=== PATIENT | male | born 2000 | race Caucasian/White ===

== ENCOUNTER 2025-05-08 21:15 | Emergency (ER) | payer OTHER, SELFPAY ==
--- NOTE | 2025-05-08 | XR_ITS ---
WS: [id number] views of the right first finger, 05/08/2025, 2247 hours Clinical Data: POST REDUCTION Comparison: Right thumb, 05/08/2025, 2144 hours Findings: There is reduction of the dorsal angulation of the distal fracture fragment of the proximal phalanx of the right thumb. XR/XR finger RT min 2V [id number] Impression: Reduction of angulation of distal fracture fragment of the proximal phalanx of the right thumb.
[2025-05-08 21:26] VITALS: BP 119/74; PULSE 56; RESP 18; TEMP 36.8; O2SAT 98; BMI 23.6
--- NOTE | 2025-05-08 21:33 | XRR_ITS ---
PROCEDURE INFORMATION: Exam: XR Right Finger(s) Exam date and time: 05/08/2025 9:41 PM Age: 25 years old Clinical indication: Injury or trauma; Other: Crushing; Finger; Right; Thumb; Additional info: Thumb; Smash injury between board and pipe TECHNIQUE: Imaging protocol: Radiologic exam of the right fingers. Views: Minimum 2 views. COMPARISON: No relevant prior studies available. FINDINGS: Bones/joints: Comminuted displaced and angulated fracture of the midshaft right proximal 1st phalanx. Soft tissues: Normal. XR/XR finger RT min 2V [id number] IMPRESSION: Comminuted displaced and angulated fracture of the midshaft right proximal 1st phalanx.
--- NOTE | 2025-05-08 21:49 | W.ED.UPPEXIN ---
HPI - Extremity Injury (Upper) General: Chief Complaint: Extremity Injury, Upper Stated Complaint: right thumb pain Time Seen by Provider: 05/08/25 21:44 Source: patient Mode of arrival: ambulatory Limitations: no limitations History of Present Illness: Patient is a nice 25-year-old male presents to ED today for evaluation of right thumb injury that he sustained just prior to arrival while at work. Patient states he got the right finger smashed between a piece of wood and a steel board. States this is a Worker's Comp injury. complaint: injury to: right and finger Onset (ago): hour(s) Other Extremity Injury: Right: fingers Handedness: right Place: work Severity: moderate Relieving factors: immobilization Exacerbating factors: movement of extremity Context: direct blow Associated symptoms: Reports no associated symptoms Related Data Allergies Allergy/AdvReac Type Severity Reaction Status Date / Time No Known Allergies Allergy Verified 05/08/25 21:33 Review of Systems Musc: Reports: extremity pain (R thumb) Neuro: Denies: numbness in extremities or sensory changes Physical Exam Const: COMMON NORMALS: no acute distress, average body habitus, no limitations, healthy appearing, alert and well nourished Extremity: COMMON NORMALS: capillary refill normal GENERAL: Yes normal exam except as noted RIGHT UPPER EXTREMITY: Yes hand & digits (deformity to R thumb consistent with fracture/dislocation) Right hand and digits: Yes neurovascular exam (normal) OTHER: no breaks in skin Neuro: COMMON NORMALS: moves all extremities, no focal motor deficits and no sensory deficits noted SENSORIUM/ORIENTATION: Yes alert Procedures Orthopedic Fracture Reduction Fracture #1: Side: right Fracture Reduction Location: finger Analgesia: nerve block Technique: direct manipulation and traction/counter-traction Post Reduction X-rays Demonstrate: other (initial post reduction film showed no change-this was later re-shot with me at patient bedside and showed improved alignment however order was never placed and I cannot find these images now in patient chart) Post-reduction neuro exam: intact Post-reduction vascular exam: intact Splint Applied: Yes Patient Tolerated Procedure: well Additional Comments: Attempted reduction after nerve block and could palpate reduction but as soon as I would let go of his finger, his fracture to proximal phalanx would immediately displace again. His initial post-reduction films did not show any improvement in alignment. Attempted repeat reduction and anatomical positioning was manually held for repeat imaging. We did have XR tech come shoot repeat films and alignment was much improved thus we held digit in alignment and placed thumb spica. XR tech had expressed that he would put an order in for these repeat films but I do not see that it was completed thus I cannot see improved films in his chart but these were visualized on portable XR prior to splinting. Course Consultations: Consultation #1: Dr. Brennan-recommend reduction, thumb spica, follow up in office Vital Signs: Vital signs: Vital Signs Temperature 98.3 F 05/08/25 21:26 Pulse Rate 56 L 05/08/25 21:26 Respiratory Rate 18 05/08/25 21:26 Blood Pressure 119/74 05/08/25 21:26 Pulse Oximetry 98 05/08/25 21:26 Oxygen Delivery Me thod Room Air 05/08/25 21:26 MDM - Extremity Injury (Upper) Medical Decision Making Patient here with a comminuted, displaced, angulated proximal phalanx fracture involving his right thumb. Unsuccessful first attempt at reduction as fracture would immediately displace again as soon as I removed traction. Second attempt at reduction successful per portable XR films and finger was held in traction until I could get a thumb spica placed on it to hold alignment. Digit NV intact. He will follow up with orthopedics. Medical Records I reviewed the patient's medical records. Lab Data Radiology Impressions Finger X-Ray 05/08/25 22:15 IMPRESSION: No significant interval change in the appearance or alignment of the comminuted displaced and angulated fracture of the proximal 1st phalanx. All radiology interpretation(s) finalized by discharge Discharge Plan Discharge Patient Disposition: Home Clinical Impression: Closed fracture of proximal phalanx of thumb Qualifiers: Encounter type: initial encounter Fracture alignment: displaced Laterality: right Qualified Code(s): S62.511A - Displaced fracture of proximal phalanx of right thumb, initial encounter for closed fracture Condition: Stable Discharge Orders: Discharge ED (Routine); Ordered 05/08/25 Ordered By: Brook Appiah Referrals: Ranjit Mcbride [Primary Care Provider, [facility]] Rosy Boyd FNP [Family Provider, Nurse Practitioner] Patient Instructions: Thumb Fracture (ED), Patient Portal & Dee Instructions Activity Restrictions/Additional Instructions: As we discussed, case management should contact you shortly regarding your follow-up orthopedic appointment. You need to stay in your splint at all times until this appointment. You have indicated that you did not want a prescription for pain medications. You need to take Tylenol and Ibuprofen [id number] to help with swelling and discomfort. Print Language: Persian Coding Level of Care Code ED Brokerage Coordinator for Erwin Sutton
--- NOTE | 2025-05-08 22:15 | XRR_ITS ---
PROCEDURE INFORMATION: Exam: XR Right Finger(s) Exam date and time: 05/08/2025 10:18 PM Age: 25 years old Clinical indication: Pain; Finger(s); Right; Additional info: Thumb; Attempted reduction/better alignment TECHNIQUE: Imaging protocol: Radiologic exam of the right fingers. Views: Minimum 2 views. COMPARISON: CR (UP EXM, ) 05/08/2025 9:41 PM FINDINGS: Bones/joints: No significant interval change in the appearance or alignment of the comminuted displaced and angulated fracture of the proximal 1st phalanx. Soft tissues: Normal. XR/XR finger RT min 2V [id number] IMPRESSION: No significant interval change in the appearance or alignment of the comminuted displaced and angulated fracture of the proximal 1st phalanx.
--- OUTSIDE RECORDS SUMMARY | 2025-05-08 23:08 | XMS_ITS | Encounter Summary ---
Author Organization [facility] Address [address] [place] [address] Care Team Providers Care Machine Gunner Name Role Phone Eros Verdin MD Primary Care Provider +1 [phone] Encounter Details Date Type Department Care Team (Latest Contact Info) Description 09/17/2003 Outpatient [facility] Family Medicine- [address] [address] [place] [address] Chris Gutierrez, NO ADDRESS ON FILE ACUTE URI NOS (Primary Dx) Social History Tobacco Use Types Packs/Day Years Used Date Smoking Tobacco: Never Assessed Sex and Gender Information Value Date Recorded Sex Assigned at Not on file 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
--- OUTSIDE RECORDS SUMMARY | 2025-05-08 23:08 | XMS_ITS | Encounter Summary ---
Author Organization [facility] Address [address] [place] [address] Care Team Providers Care Senior Research Consultant Name Role Phone Eros Verdin MD Primary Care Provider +1 [phone] Encounter Details Date Type Department Care Team (Latest Contact Info) Description 05/29/2003 Outpatient Historical [facility] Medicine [address] [phone] Herminia France MD NO ADDRESS ON FILE ACUTE URI NOS (Primary Dx) Social History Tobacco Use Types Packs/Day Years Used Date Smoking Tobacco: Never Assessed Sex and Gender Information Value Date Recorded Sex Assigned at Not on file 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
--- OUTSIDE RECORDS SUMMARY | 2025-05-08 23:08 | XMS_ITS | Encounter Summary ---
Author Organization [facility] Address [address] [place] [address] Care Team Providers Care Packing House Supervisor Name Role Phone Eros Verdin MD Primary Care Provider +1 [phone] Encounter Details Date Type Department Care Team (Latest Contact Info) Description 09/15/2005 Outpatient [facility]- [address] [phone] Param Baldwin MD [address] [phone] ACUTE URI NOS (Primary Dx) Social History Tobacco Use Types Packs/Day Years Used Date Smoking Tobacco: Never Assessed Sex and Gender Information Value Date Recorded Sex Assigned at Not on file 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
--- OUTSIDE RECORDS SUMMARY | 2025-05-08 23:08 | XMS_ITS | Encounter Summary ---
Author Organization [facility] Address [address] [place] [address] Care Team Providers Care Activities Officer Name Role Phone Eros Verdin MD Primary Care Provider +1 [phone] Encounter Details Date Type Department Care Team (Latest Contact Info) Description 11/22/2003 Outpatient [facility]- [address] [phone] Chris Gutierrez DO NO ADDRESS ON FILE STREP SORE THROAT (Primary Dx) Social History Tobacco Use Types Packs/Day Years Used Date Smoking Tobacco: Never Assessed Sex and Gender Information Value Date Recorded Sex Assigned at Not on file 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
--- OUTSIDE RECORDS SUMMARY | 2025-05-08 23:08 | XMS_ITS | Encounter Summary ---
Author Organization [facility] Address [address] [place] [address] Care Team Providers Care Internist Name Role Phone Eros Verdin MD Primary Care Provider [phone] [phone] Encounter Details Date Type Department Care Team (Latest Contact Info) Description 01/07/2003 Outpatient Historical [facility] Family Medicine- [place] [address] [place] [address] Herminia France MD NO ADDRESS ON FILE ACUTE PHARYNGITIS (Primary Dx) Social History Tobacco Use Types Packs/Day Years Used Date Smoking Tobacco: Never Assessed Sex and Gender Information Value Date Recorded Sex Assigned at Not on file Legal Sex Male 4:52 AM CURATOR Gender Identity Not on file Sexual Orientation Not on file documented as of this encounter Plan of Treatment Not on file documented as of this encounter Visit Diagnoses Diagnosis Acute pharyngitis- Primary documented in this encounter Care Teams Internist Relationship Specialty Start Date End Date Eros Verdin MD [address] [facility] [address] [place] [address] PCP - General Family Practice 04/12/18 documented as of this encounter
--- OUTSIDE RECORDS SUMMARY | 2025-05-08 23:08 | XMS_ITS | Encounter Summary ---
Author Organization [facility] Address [address] [place] [address] Care Team Providers Care Modeling Analyst Name Role Phone Eros Verdin MD Primary Care Provider +1 [phone] Encounter Details Date Type Department Care Team (Latest Contact Info) Description 01/22/2004 Outpatient Historical [facility] Family Medicine- [place] [address] [facility] [place] [address] Vladimir Gonzalez NP NO ADDRESS ON FILE ACUTE TONSILLITIS (Primary Dx) Social History Tobacco Use Types Packs/Day Years Used Date Smoking Tobacco: Never Assessed Sex and Gender Information Value Date Recorded Sex Assigned at Not on file Legal Sex Male 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
--- OUTSIDE RECORDS SUMMARY | 2025-05-08 23:08 | XMS_ITS | Encounter Summary ---
Author Organization [facility] Address [address] [place] [address] Care Team Providers Care Generator Operator Name Role Phone Eros Verdin MD Primary Care Provider +1 [phone] Encounter Details Date Type Department Care Team (Latest Contact Info) Description 12/28/2004 Outpatient [facility] Family Medicine- [address] [place] [address] Herminia France MD NO ADDRESS ON FILE ACUTE BRONCHITIS (Primary Dx); ACUTE PHARYNGITIS Social History Tobacco Use Types Packs/Day Years Used Date Smoking Tobacco: Never Assessed Sex and Gender Information Value Date Recorded Sex Assigned at Not on file Legal Sex Male 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
--- OUTSIDE RECORDS SUMMARY | 2025-05-08 23:08 | XMS_ITS | Encounter Summary ---
Author Organization [facility] Address [address] [place] [address] Care Team Providers Care Lumber Material Handler Name Role Phone Eros Verdin MD Primary Care Provider [phone] [phone] Encounter Details Date Type Department Care Team (Latest Contact Info) Description 04/13/2004 Outpatient [facility]- [address] [phone] Ranjit Mcbride, PA NO ADDRESS ON FILE ACUTE PHARYNGITIS (Primary Dx) Social History Tobacco Use Types Packs/Day Years Used Date Smoking Tobacco: Never Assessed Sex and Gender Information Value Date Recorded Sex Assigned at Not on file Legal Sex Male 4:52 AM ENGLISH TUTOR Gender Identity Not on file Sexual Orientation Not on file documented as of this encounter Plan of Treatment Not on file documented as of this encounter Visit Diagnoses Diagnosis Acute pharyngitis- Primary documented in this encounter Care Teams Lumber Material Handler Relationship Specialty Start Date End Date Eros Verdin MD [address] [phone] PCP - General Family Practice 04/12/18 documented as of this encounter
--- OUTSIDE RECORDS SUMMARY | 2025-05-08 23:09 | XMS_ITS | Encounter Summary ---
Author Organization [facility] Address [address] [place] [address] Care Team Providers Care Funeral Home Makeup Artist Name Role Phone Eors Verdin MD Primary Care Provider +1 -[phone] Encounter Details Date Type Department Care Team (Latest Contact Info) Description 01/26/2002 Outpatient [facility]- [address] [phone] Chris Gutierrez, NO ADDRESS ON FILE OTITIS MEDIA NOS (Primary Dx) Social History Tobacco Use Types Packs/Day Years Used Date Smoking Tobacco: Never Assessed Sex and Gender Information Value Date Recorded Sex Assigned at Not on file 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
--- OUTSIDE RECORDS SUMMARY | 2025-05-08 23:09 | XMS_ITS | Encounter Summary ---
Author Organization [facility] Address [address] [place] [address] Care Team Providers Care Data Collection Interviewer Name Role Phone Eros Verdin MD Primary Care Provider +1 [phone] Encounter Details Date Type Department Care Team (Latest Contact Info) Description 12/18/2002 Outpatient [facility] Family Medicine- [place] [address] [place] [address] Chris Gutierrez, NO ADDRESS ON FILE NAUSEA WITH VOMITING (Primary Dx); DIARRHEA NOS Social History Tobacco Use Types Packs/Day Years Used Date Smoking Tobacco: Never Assessed Sex and Gender Information Value Date Recorded Sex Assigned at Not on file 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
--- OUTSIDE RECORDS SUMMARY | 2025-05-08 23:09 | XMS_ITS | Encounter Summary ---
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
--- OUTSIDE RECORDS SUMMARY | 2025-05-08 23:09 | XMS_ITS | Encounter Summary ---
Author Organization [facility] Address [address] [place] [address] Care Team Providers Care Fly Setter Name Role Phone Eros Verdin MD Primary Care Provider +1 -[phone] Encounter Details Date Type Department Care Team (Latest Contact Info) Description 02/09/2002 Outpatient Historical [facility] Medicine- [address] [phone] Param Baldwin MD [address] [phone] OTITIS MEDIA NOS (Primary Dx) Social History Tobacco Use Types Packs/Day Years Used Date Smoking Tobacco: Never Assessed Sex and Gender Information Value Date Recorded Sex Assigned at Not on file Legal Sex Male 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
--- OUTSIDE RECORDS SUMMARY | 2025-05-08 23:09 | XMS_ITS | Encounter Summary ---
Author Organization [facility] Address [address] [place] [address] Care Team Providers Care Muck Miner Name Role Phone Eros Verdin MD Primary Care Provider +1 -[phone] Encounter Details Date Type Department Care Team (Latest Contact Info) Description 06/29/2002 Outpatient [facility]- [address] [phone] Herminia France MD NO ADDRESS ON FILE STREP SORE THROAT (Primary Dx) Social History Tobacco Use Types Packs/Day Years Used Date Smoking Tobacco: Never Assessed Sex and Gender Information Value Date Recorded Sex Assigned at Not on file Legal Sex Male 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
--- OUTSIDE RECORDS SUMMARY | 2025-05-08 23:09 | XMS_ITS | Encounter Summary ---
Author Organization [facility] Address [address] [place] [address] Care Team Providers Care Epic Cupid Specialists Name Role Phone Eros Verdin MD Primary Care Provider +1 [phone] Encounter Details Date Type Department Care Team (Latest Contact Info) Description 10/26/2002 Outpatient Historical [facility] Medicine- [address] [phone] Param Baldwin MD [address] [phone] OTITIS MEDIA NOS (Primary Dx) Social History Tobacco Use Types Packs/Day Years Used Date Smoking Tobacco: Never Assessed Sex and Gender Information Value Date Recorded Sex Assigned at Not on file Legal Sex Male 4: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
--- OUTSIDE RECORDS SUMMARY | 2025-05-08 23:09 | XMS_ITS | Clinical Summary ---
Author Organization [facility] Address [address] [facility] Attn: Epic Prelude ADT AUDELIA DICKSON [address] Care Team Providers Care Spectrographer Name Role Phone Eros Verdin MD Primary Care Provider +1 [phone] Allergies No known active allergies Medications predniSONE (DELTASONE) 20 mg tablet Take 1 Tablet (20 mg) by mouth daily. 7 Tablet 0 07/23/2019 Active Active Problems Problem Noted Date Diagnosed Date Allergic rhinitis 02/06/2010 Asthma 12/10/2009 Immunizations Immunization Administration Dates Next Due (ADACEL/BOOSTRIX)(10 YR UP) TDAP VACCINE, 0.5ML, IM 04/29/2014 (M-M-R II/PRIORIX)(12 MO UP) MEASLES, MUMPS AND RUBELLA VIRUS VACCINE, 0.5 ML IM/SUBCUT 05/06/2006,05/10/2003 Dt Dtp Dtap Vaccine 05/06/2006, 4,05/10/2003,2000 HIB, Unspecified Formulation 05/12/2004,05/10/20 03,2001 Hepatitis B Vaccine 05/12/2004,05/10/2003,2000 IPV/OPV 05/06/2006, 4,05/10/2003,2000 Pneumococcal 7-valent conjug ate vaccine IM 05/12/2004 Family History Medical History Relation Name Comments Asthma Father Other Father accidental deat h Cancer Maternal Grandfather throat, leukemia Depression Maternal Grandmother Respiratory Disease Maternal Grandmother Thyroid Disease Maternal Grandmother Depression Mother Other Mother anxiety,headach es Healthy Paternal Grandfather Healthy Paternal Grandmother Breast Cancer Neg Hx Colon Cancer Neg Hx Relation Name Status Comments Father Maternal Grandfather Maternal Grandmother Alive Mother Alive Paternal Grandfather Alive Paternal Grandmother Alive Social History Tobacco Use Types Packs/Day Years Used Date Smoking Tobacco: Never Smokeless Tobacco: Former Alcohol Use Standard Drinks/Week Comments No 0 (1 standard drink = 0.6 oz pur e alcohol) Sex and Gender Information Value Date Recorded Sex Assigned at Not on file 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 Gender Identity Not on file Sexual Orientation Not on file Last Filed Vital Signs Vital Sign Reading Time Taken Comments Blood Pressure 118/68 07/23/2019 10:11 AM CDT Pulse 88 07/23/2019 10:11 AM CDT Temperature 37.6 C (99.7 F) 07/23/2019 10:11 AM CDT Respiratory Rate 18 07/22/2019 1:53 AM CDT Oxygen Saturation - - Inhaled Oxygen Concentration - - Weight 62.2 kg (137 lb 3.2 oz) 07/23/2019 10:11 AM CDT Height 175.9 cm (5' 9.25 ) 07/23/2019 10:11 AM C DT Body Mass Index 20.12 07/23/2019 10:11 AM CDT Plan of Treatment Health Maintenance Due Date Last Done Comments HPV VACCINES (1 - Male 3-dos e series) 02/12/2016 DTAP/TDAP/TD VACCINES (6 - T d or Tdap) 04/29/2024 04/29/2014, 05/06/2006, 05/12/2004, Additional history exists INFLUENZA VACCINE (#1) 2025 HEPATITIS B VACCINES Completed 05/12/2004, 05/10/2003, 2001 Care Teams Spectrographer Relationship Specialty Start Date End Date Eros Verdin MD [address] [phone] PCP - General Family Practice 04/12/18
--- OUTSIDE RECORDS SUMMARY | 2025-05-08 23:09 | XMS_ITS | Clinical Summary ---
Author Organization [facility] Address [address] [place] [address] Care Team Providers Care Montessori Teacher Name Role Phone Eros Verdin MD Primary Care Provider +1 [phone] Allergies No known active allergies Medications predniSONE (DELTASONE) 20 mg tablet Take 1 Tablet (20 mg) by mouth daily. 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 Gender Identity Not on file Sexual Orientation Not on file Occupation Industry Job Start Date Job End Date Not on file Not on file Not on file Not on file Last Filed Vital Signs Vital Sign Reading Time Taken Comments Blood Pressure 118/68 07/23/2019 10:11 AM CDT Pulse 88 07/23/2019 10:11 AM CDT Temperature 37.6 C (99.7 F) 07/23/2019 10:11 AM CDT Respiratory Rate 18 07/22/2019 1:53 AM CDT Oxygen Saturation 99% 07/23/2019 10:11 AM CDT Inhaled Oxygen Concentration - - Weight 62.2 kg (137 lb 3.2 oz) 07/23/2019 10:11 AM CDT Height 175.9 cm (5' 9.25 ) 07/23/2019 10:11 AM C DT Body Mass Index 20.11 07/23/2019 10:11 AM CDT Plan of Treatment Health Maintenance Due Date Last Done Comments HPV VACCINES (1 - Male 3-dos e series) 02/12/2016 DTAP/TDAP/TD VACCINES (6 - T d or Tdap) 04/29/2024 04/29/2014, 05/06/2006, 05/12/2004, Additional history exists INFLUENZA VACCINE (#1) 2025 HEPATITIS B VACCINES Completed 05/12/2004, 05/10/2003, 2001 Insurance [facility] [place] [place] [address] Care Teams Montessori Teacher Relationship Specialty Start Date End Date Eros Verdin MD [address] [phone] PCP - General Family Practice 04/12/18
--- OUTSIDE RECORDS SUMMARY | 2025-05-08 23:09 | XMS_ITS | Encounter Summary ---
Author Organization [facility] Address [address] [place] [address] Care Team Providers Care Retail Sales Lead Name Role Phone Eros Verdin MD Primary Care Provider [phone] [phone] Encounter Details Date Type Department Care Team (Latest Contact Info) Description 2001 [facility] Family Medicine- [place] [address] [place] [address] Chris Gutierrez, NO ADDRESS ON FILE OTITIS MEDIA NOS (Primary Dx) Social History Tobacco Use Types Packs/Day Years Used Date Smoking Tobacco: Never Assessed Sex and Gender Information Value Date Recorded Sex Assigned at Not on file 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
--- OUTSIDE RECORDS SUMMARY | 2025-05-08 23:09 | XMS_ITS | Encounter Summary ---
Author Organization [facility] Address [address] [place] [address] Care Team Providers Care Radiological Defense Officer Name Role Phone Eros Verdin MD Primary Care Provider +1 [phone] Encounter Details Date Type Department Care Team (Latest Contact Info) Description 05/06/2006 Outpatient [facility]- [address] [phone] Ranjit Mcbride, [place] NO ADDRESS ON FILE Routine Child Health Exam (Primary Dx) Social History Tobacco Use Types Packs/Day Years Used Date Smoking Tobacco: Never Assessed Sex and Gender Information Value Date Recorded Sex Assigned at Not on file 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
--- OUTSIDE RECORDS SUMMARY | 2025-05-08 23:09 | XMS_ITS | Encounter Summary ---
Author Organization [facility] Address [address] [place] [address] Care Team Providers Care Line Department Supervisor Name Role Phone Eros Verdin MD Primary Care Provider +1 [phone] Encounter Details Date Type Department Care Team (Latest Contact Info) Description 06/12/2002 Outpatient [facility] Family Medicine- [place] [address] [place] [address] Chris Gutierrez, NO ADDRESS ON FILE OTITIS MEDIA NOS (Primary Dx); INSECT BITE NEC Social History Tobacco Use Types Packs/Day Years Used Date Smoking Tobacco: Never Assessed Sex and Gender Information Value Date Recorded Sex Assigned at Not on file 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 Gender Identity Not on file Sexual Orientation Not on file documented as of this encounter Plan of Treatment Not on file documented as of this encounter Visit Diagnoses Diagnosis Unspecified otitis media- Primary Other, multiple, and unspecified sites, insect bite, nonvenomous, without mention of infection(919.4) Other, multiple, and unspecified sites, insect bite, nonvenomous, without mention of infection documented in this encounter Care Teams Line Department Supervisor Relationship Specialty Start Date End Date Eros Verdin MD [address] [place] [phone] PCP - General Family Practice 04/12/18 documented as of this encounter
--- OUTSIDE RECORDS SUMMARY | 2025-05-08 23:09 | XMS_ITS | Encounter Summary ---
Author Organization [facility] Address [address] [place] [address] Care Team Providers Care Film Processor Name Role Phone Eros Verdin MD Primary Care Provider +1 [phone] Encounter Details Date Type Department Care Team (Latest Contact Info) Description 10/23/2002 Outpatient [facility] Family Medicine- [address] [place] [address] Chris Gutierrez, DO NO ADDRESS ON FILE ACUTE PHARYNGITIS (Primary Dx); OTITIS MEDIA NOS Social History Tobacco Use Types Packs/Day Years Used Date Smoking Tobacco: Never Assessed Sex and Gender Information Value Date Recorded Sex Assigned at Not on file 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
--- OUTSIDE RECORDS SUMMARY | 2025-05-08 23:09 | XMS_ITS | Encounter Summary ---
Author Organization [facility] Address [address] [place] [address] Care Team Providers Care Rag Room Supervisor Name Role Phone Eros Verdin MD Primary Care Provider +1 [phone] Encounter Details Date Type Department Care Team (Latest Contact Info) Description 09/11/2002 Outpatient [facility] Family Medicine- [place] [address] [place] [address] Chris Gutierrez, NO ADDRESS ON FILE OTITIS MEDIA NOS (Primary Dx) Social History Tobacco Use Types Packs/Day Years Used Date Smoking Tobacco: Never Assessed Sex and Gender Information Value Date Recorded Sex Assigned at Not on file 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
--- OUTSIDE RECORDS SUMMARY | 2025-05-08 23:09 | XMS_ITS | Encounter Summary ---
Author Organization [facility] Address [address] [place] [address] Care Team Providers Care Concrete Block Mason Name Role Phone Eros Verdin MD Primary Care Provider +1 [phone] Encounter Details Date Type Department Care Team (Latest Contact Info) Description 12/17/2002 Outpatient Historical [facility] Medicine- [address] [phone] Param Baldwin MD [address] [phone] NAUSEA WITH VOMITING (Primary Dx); DIARRHEA NOS Social History Tobacco Use Types Packs/Day Years Used Date Smoking Tobacco: Never Assessed Sex and Gender Information Value Date Recorded Sex Assigned at Not on file 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
--- OUTSIDE RECORDS SUMMARY | 2025-05-08 23:09 | XMS_ITS | Encounter Summary ---
Author Organization [facility] Address [address] [place] [address] Care Team Providers Care Asset Protection Officer Name Role Phone Eros Verdin MD Primary Care Provider +1 [phone] Encounter Details Date Type Department Care Team (Latest Contact Info) Description [address] 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
--- NOTE | 2025-05-09 09:49 | DCPLANNER ---
messaged ortho for er f/u
== END 2025-05-08 23:12 | disposition home or self-care (01) ==
PROVIDERS: Emergency Provider Physician Assistant; Family Provider Nurse Practitioner; PCP Physician Assistant Medical
DX: S62.511A Displaced fracture of proximal phalanx of right thumb, initial encounter for closed fracture (principal); W23.1XXA Caught, crushed, jammed, or pinched between stationary objects, initial encounter
CPT/HCPCS: 26725; 29130; 73140; 99283; J9999

== ENCOUNTER → 2025-05-10 12:06 | Outpatient (BNVA) | payer OTHER, SELFPAY | PROVIDERS: Family Provider Nurse Practitioner; PCP Physician Assistant Medical; Visit Provider Student in an Organized Health Care Education/Training Program | DX: S62.511A Displaced fracture of proximal phalanx of right thumb, initial encounter for closed fracture (principal); W23.0XXA Caught, crushed, jammed, or pinched between moving objects, initial encounter | CPT/HCPCS: 73130 ==

== ENCOUNTER 2025-05-13 10:51 | Day surgery (SDC) | payer OTHER, SELFPAY ==
[2025-05-13] VITALS (12 sets, daily range): BP systolic 111–152; BP diastolic 61–92; PULSE 68–87; RESP 12–26; TEMP 36.4–36.7; O2SAT 95–100; BMI 23.6
--- NOTE | 2025-05-13 | XR_ITS ---
WS: [id number] 3 views of the right first finger, C-arm fluoroscopy views, 05/13/2025 Clinical Data: OR PICS Comparison: Right hand, 05/10/2025 Findings: Dr. Brennan inserted a longitudinal pin into the right thumb due to the proximal phalanx fracture. XR/XR finger RT min 2V 60071 Impression: Internal fixation of right thumb proximal phalanx fracture.
[2025-05-13] MEDS: acetaminophen 1,000 MG/100 ML PIGGYBACK 400 MG IV (11:53)
--- NOTE | 2025-05-13 12:07 | W.PM.OPSUD ---
Surgery/Procedure H&P Update DATE OF PROCEDURE: May 13, 2025 DATE H&P PERFORMED: 05/10/25 H&P UPDATE INFORMATION: I have reviewed H&P completed within last 30 days, I have examined patient prior to procedure and No changes to prior documentation PREOP DIAGNOSIS: Right thumbDisplaced proximal phalanx fracture PRIMARY INDICATION FOR PROCEDURE: Right thumb displaced proximal phalanx fracture PLANNED PROCEDURE: Operation Date: 05/13/25 13:05 Proposed Procedures p ight thumb proximal phalanx closed reduction percutaneous pinning versus ORIF(Right) - Brendan Brennan DO
[2025-05-13] MEDS: ceFAZolin 2,000 mg SDV 2000 MG IVP (12:11)
--- NOTE | 2025-05-13 12:27 | ANES.PREANE2 ---
Pre-Anesthetic Assessment Height/Weight: Height 1.75 m Weight 72.575 kg Temp Pulse Resp BP Pulse Ox O2 Del Method 97.6 F 87 14 134/74 95 Room Air 05/13/25 11:29 05/13/25 11:29 05/13/25 11:29 05/13/25 11:29 05/13/25 11:29 05/13/25 11:29 Preop Diagnosis: Right thumbDisplaced proximal phalanx fracture Operation Date: 05/13/25 13:05 Proposed Procedures p ight thumb proximal phalanx closed reduction percutaneous pinning versus ORIF(Right) - Brendan Marengo, Familial anesthetic complications: None Was Beta Mel taken within 24 hours: N/A Was Clonidine taken within 24 hours: N/A Last intake: Intake Last Liquid Date 05/12/25 Last Liquid Time 23:55 Last Solid Date 05/12/25 Last Solid Time 21:00 Social Tobacco and No alcohol Exam alert, oriented x 3, clear to auscultation bilaterally and regular rate & rhythm Airway Mallampati: Class I Dentition: full Anesthetic Plan ASA status: 3 Anesthesia: General Risk of > 500 ml blood loss (7ml/kg in children): No Medications/Allergies Home Medications ?Medication ?Instructions ?Recorded ?Confirmed ?Last Taken ?Type acetaminophen 500 mg tablet 500 mg PO Q6H PRN Pain 05/13/25 05/13/25 05/12/25 History ibuprofen 200 mg tablet 200 mg PO Q6H PRN Pain 05/13/25 05/13/25 05/12/25 History Allergies Allergy/AdvReac Type Severity Reaction Status Date / Time No Known Allergies Allergy Verified 05/10/25 12:39 Current Medications Generic Name Dose Route Start Last Admin Trade Name Freq PRN Reason Stop Dose Admin Sodium Chloride 1,000 mls @ 30 mls/hr 05/13/25 11:15 05/13/25 11:56 Sodium Chloride 0.9% IV 05/14/25 11:14 30 mls/hr .Q24H ERASTO Administration PFSH Anesthesia Social History Smoking and tobacco/nicotine status: never used tobacco/nicotine
[2025-05-13] MEDS: ROPivacaine 0.5% SDV 30 mL 150 MG INJECTION (13:00)
--- NOTE | 2025-05-13 13:27 | W.PM.BPON ---
Date of Procedure: 05/13/2025 Surgeon: Brendan Brennan DO Computer Specialist(s): None Procedure(s) performed: Right thumb proximal phalanx closed reduction percutaneous pinning Findings of the procedure(s): Patient underwent procedure as planned without issues or complications taken recovery in stable condition with a thumb spica splint on in place Estimated blood loss: 2 mL Specimen(s) removed: None Post-operative diagnosis: Right thumb proximal phalanx displaced fracture
--- NOTE | 2025-05-13 13:29 | PM.OP ---
Operative Report Date of procedure: May 13, 2025 Pre-op diagnosis: Displaced right thumb proximal phalanx fracture Post-op diagnosis: Same Post-op findings: See operative report narrative Procedure done: Right thumb proximal phalanx closed reduction percutaneous pinning Implants: 0.062 K wire x 1 used and left in place 0.045 K wire x 1 was used but removed as this was too crowded and inhibited reduction Surgeon: Brendan Brennan DO Adult Manager: None Anesthesia: General Estimated blood loss: Less than 5 mL 26 minutes IV fluids: 800 mL Urine output: None Complications: None Findings: See operative report narrative Condition: stable Disposition: same day Brief History: Patient is a pleasant 25-year-old male who sustained a fracture to the right thumb proximal phalanx with significant displacement and angulation seen in the outpatient setting discussed treatment options Fars nonoperative intervention given young age displacement and angulation would recommend surgical intervention we talked about this as a right thumb proximal phalanx closed reduction percutaneous pinning versus open reduction internal fixation. We talked about his treatment options in detail through shared decision-making was proceed with surgical invention. All questions have been answered at this time. Consent reviewed and signed with patient in the preop holding area. This injury did not happen at work please refer to the initial office note for details. Procedure: Patient was seen evaluated the preoperative holding area. Consent was reviewed and signed with patient. Correct extremity was then subsequently marked. This point time patient was seen by by anesthesia was cleared for surgery patient was taken back to the operative suite kept on [place] [employer] ssd armboard applied to the right upper extremity. Patient had subsequent underwent anesthesia per the anesthesia department was prepped anesthetized patient's was progressed per the bed all bony prominences well-padded. At this point in time the right upper extremity had a nonsterile tourniquet applied to the right upper arm. The right upper extremity was then prepped and draped in standard orthopedic fashion. Final timeout performed. Patient received appropriate preoperative antibiotics. Esmarch tourniquet was used exsanguinate right upper extremity tourniquet was insufflated to 250 mmHg. At this point in time I subsequently brought in the mini fluoroscopic imaging x-ray and then subsequently evaluated the fracture displacement and I subsequently was able to perform a manual reduction and was able to hold this manually under closed reduction. This point in time my plan was for close reduction percutaneous pin fixation. At this point in time I attempted a cross pin configuration with a 0.45 K wire however this unfortunately was unable to hold the reduction in each crosspin configuration would malreduce the fracture. As result the 0.45 K wire was removed. At that point in time I planned on an intramedullary device as it took the 0.62 K wire flex the IP joint down held by reduction in a retrograde fashion drove this through the middle phalanx while maintaining the reduction. This was able to maintain a very satisfactory reductionSame I subsequently The IP joint flexed as well as the MP joint was flexed and then subsequently retrograded the screw out of the skin dorsally out of the MP joint and then was able to pull this out straight in the IP joint and then drive the pin in antegrade fashion. This was then kept in place and increase my fixation as now we have multiple points of fixation cortically. This was then driven out of the distal tip of the thumb. At this point in time finger was taken through range of motion given the fracture had slightly proximal component I was worried about the fixation or possible migration of the pin and proximally as this was driven out of the MP joint and worried about this propagating proximally and then subsequently irritating the MP joint. As a result given this pinned would stay in place and would maintain a thumb spica my plan was for increased fixation I subsequently held the MP joint in neutral position and then continued retrograde driving this across the MP joint and into the metacarpal head for increased fixation at this point in time this had excellent fixation of the finger was taken through range of motion and stressing at the fracture site this maintained satisfactory reduction. This point in time tourniquet was deflated hemostasis satisfactory. Final fluoroscopic imaging were taken with satisfactory reduction and fixation multiple orthogonal images. The pin was then subsequently bent cut and capped distally. Xeroform was placed around the pin site on the right thumb was then dressed with bulky soft dressing of 4 x 4's [place] wrap Curlex soft roll and a thumb spica splint was applied. Patient tolerated procedure well without issues or complications taken recovery in stable condition. Disposition: Patient taken to recovery in stable condition receive appropriate discharge instructions and pain medication postoperatively will follow-up in orthopedic office in 2 weeks maintain splint until follow-up. All questions answered at this time. Appropriate notes given for work. Patient should be nonweightbearing and instructed to keep splint clean dry and intact
--- NOTE | 2025-05-13 15:04 | ANE.PACU2 ---
Inpatient post-anesthesia follow up: Airway intact: Yes Vital signs: Temperature 97.9 F Pulse Rate 68 Respiratory Rate 14 Blood Pressure 118/67 Pulse Oximetry 96 Oxygen Delivery Me thod Room Air Oxygen Flow Rate Fraction of Inspir ed Oxygen Hydration adequate: Yes Nausea and vomiting: No Pain level: 1 Mental status: Baseline
== END 2025-05-13 14:45 | disposition home or self-care (01) ==
PROVIDERS: PCP Physician Assistant Medical; Visit Provider Student in an Organized Health Care Education/Training Program
PROC: (CPT 26432; principal; 2025-05-13 12:55)
DX: S62.511A Displaced fracture of proximal phalanx of right thumb, initial encounter for closed fracture (principal); W23.1XXA Caught, crushed, jammed, or pinched between stationary objects, initial encounter
CPT/HCPCS: 26735; 73140; 76000; C1713; J0131; J0690; J1100; J1885; J2250; J2405; J2704; J2795; J3010; J7030; J9999

== ENCOUNTER 2025-05-27 06:30 | Outpatient (CLI) | payer OTHER, SELFPAY | END 2025-05-27 06:31 | disposition home or self-care (01) | LOC: SOT 06-20 13:45 | PROVIDERS: Visit Provider Physician Assistant | DX: Z46.89 Encounter for fitting and adjustment of other specified devices (principal); S62.511A Displaced fracture of proximal phalanx of right thumb, initial encounter for closed fracture; W23.1XXA Caught, crushed, jammed, or pinched between stationary objects, initial encounter | CPT/HCPCS: 97760; L3919 ==

== ENCOUNTER → 2025-05-28 13:28 | Outpatient (BNVA) | payer OTHER, SELFPAY | PROVIDERS: PCP Physician Assistant Medical; Visit Provider Physician Assistant | DX: S62.511A Displaced fracture of proximal phalanx of right thumb, initial encounter for closed fracture (principal); X58.XXXA Exposure to other specified factors, initial encounter | CPT/HCPCS: 73130 ==

== ENCOUNTER 2025-05-29 11:21 | Outpatient (CLI) | payer OTHER, SELFPAY | END 2025-05-29 11:22 | disposition home or self-care (01) | LOC: SOT 11:21 | PROVIDERS: Visit Provider Physician Assistant | DX: Z46.89 Encounter for fitting and adjustment of other specified devices (principal); S62.511A Displaced fracture of proximal phalanx of right thumb, initial encounter for closed fracture; W23.1XXA Caught, crushed, jammed, or pinched between stationary objects, initial encounter | CPT/HCPCS: 97760; L3807 ==

== ENCOUNTER → 2025-06-18 13:26 | Outpatient (BNVA) | payer OTHER, SELFPAY | PROVIDERS: PCP Physician Assistant Medical; Visit Provider Physician Assistant | DX: Z98.890 Other specified postprocedural states (principal) | CPT/HCPCS: 73130 ==

== ENCOUNTER → 2025-07-02 13:28 | Outpatient (BNVA) | payer OTHER, SELFPAY | PROVIDERS: Visit Provider Physician Assistant | DX: S62.511A Displaced fracture of proximal phalanx of right thumb, initial encounter for closed fracture (principal); X58.XXXA Exposure to other specified factors, initial encounter | CPT/HCPCS: 73130 ==

== ENCOUNTER 2025-07-11 12:40 | Outpatient (RCR) | payer OTHER, SELFPAY | END 2025-07-26 23:59 | disposition home or self-care (01) | LOC: SOT 12:40 | PROVIDERS: Visit Provider Physician Assistant | DX: S62.511A Displaced fracture of proximal phalanx of right thumb, initial encounter for closed fracture (principal); X58.XXXA Exposure to other specified factors, initial encounter | CPT/HCPCS: 97022; 97110; 97140; 97165 ==

== ENCOUNTER 2025-07-27 05:00 | Outpatient (RCR) | payer OTHER, SELFPAY | END 2025-08-25 23:59 | disposition home or self-care (01) | LOC: SOT 05:00 | PROVIDERS: Visit Provider Physician Assistant | DX: S62.511A Displaced fracture of proximal phalanx of right thumb, initial encounter for closed fracture (principal); X58.XXXA Exposure to other specified factors, initial encounter | CPT/HCPCS: 97022; 97110; 97140 ==

== ENCOUNTER → 2025-08-13 12:53 | Outpatient (BNVA) | payer OTHER, SELFPAY | PROVIDERS: Visit Provider Physician Assistant | DX: S62.511D Displaced fracture of proximal phalanx of right thumb, subsequent encounter for fracture with routine healing (principal); X58.XXXD Exposure to other specified factors, subsequent encounter | CPT/HCPCS: 73130 ==